=== PATIENT | male | born 1995 ===

== ENCOUNTER 2016-09-30 15:46 | Inpatient (IN) | payer BC, OTHER ==
[2016-09-30] MEDS ORDERED: Iohexol 240 (50 ml) PO STA (16:17)
--- NOTE | 2016-09-30 16:26 | ED PDOC ---
HPI: Abdomen Time Seen by Provider: 09/30/16 15:59 Chief Complaint (Nursing): Abdominal Pain Additional Complaint(s): Patient is a 21 y/o M with hx of Crohns, presenting with abdominal pain. Patient reports that he has had 2 week history of worsening abdominal pain, described as "whole stomach" with vomiting. He reports hard stool, with last BM last night. Denies dysuria. Denies fever. Reports being referred to ED by Dr. Slaughter for abnormal CT CT abd/pelvis from 09/23 shows "segment of markedly thickened terminal ileum with luminal narrowing and adjacent RLQ lymph nodes compatible with Crohns. There is however, marked thickening and abnormal enhancement of the appendix, it is uncertain whether this represents primary appendicitis or a reactive appendicitis. No discrete abscess is observed." Past Medical History Vital Signs: Last Vital Signs Temp 96.8 F L 09/30/16 15:52 Pulse 79 09/30/16 15:52 Resp 16 09/30/16 15:52 BP 114/68 09/30/16 15:52 Pulse Ox 99 09/30/16 17:52 - Family History Family History: States: Unknown Family Hx - Immunization History Hx Tetanus Toxoid Vaccination: No Hx Influenza Vaccination: No Hx Pneumococcal Vaccination: No - Home Medications Home Medications: Ambulatory Orders Medication Instructions Recorded No Known Home Med 09/30/16 - Allergies Allergies/Adverse Reactions: Allergies Allergy/AdvReac Type Severity Reaction Status Date / Time No Known Allergies Allergy Verified 05/19/15 12:20 Review of Systems Constitutional: Positive for: Malaise. Negative for: Fever Cardiovascular: Negative for: Chest Pain, Palpitations, Paroxysmal Noc. Dyspnea Respiratory: Negative for: Cough, Shortness of Breath, SOB with Exertion Gastrointestinal: Positive for: Nausea, Vomiting, Abdominal Pain. Negative for : Diarrhea, Constipation Genitourinary Male: Negative for: Dysuria, Hematuria, Penile Discharge, Scrotal Pain Neurological: Negative for: Weakness, Headache Psych: Negative for: Anxiety Physical Exam - Physical Exam Appears: Positive for: Uncomfortable Head Exam: Positive for: ATRAUMATIC, NORMAL INSPECTION, NORMOCEPHALIC Neck: Positive for: Normal, Painless ROM, Supple Cardiovascular/Chest: Positive for: Regular Rate, Rhythm Respiratory: Positive for: Normal Breath Sounds. Negative for: Rales, Rhonchi, Stridor, Wheezing Gastrointestinal/Abdominal: Positive for: Soft, Tenderness (generalized, but worse in RLQ). Negative for: Distended Back: Negative for: L CVA Tenderness, R CVA Tenderness Extremity: Positive for: Normal ROM. 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 Patient has had CT scan 7 days ago and due to age and risks of radiation, I would prefer not to give another dose of radiation, but considering presentation and prior CT results, will need to get additional CT to evaluate progression. Spoke to Dr. Slaughter, , who sent patient and he agrees with additional CT and labs. 5:51PM WBC is elevated to 16 with bandemia and shift. Will order blood cultures and start cipro/flagyl x [address] at 7pm due to concern for crohns vs appendicitis. Will sign out to Dr. Dodge to follow-up CT and speak to Dr. Slaughter about final dispo Disposition - Clinical Impression Clinical Impression: Abdominal pain - Disposition Disposition Time: 19:00 Condition: FAIR
[2016-09-30] MEDS ORDERED: Sodium Chloride 0.9% 1,000 ML IV ONE (16:30)
[2016-09-30] MEDS ORDERED: Iohexol 240 (50 ml) ONE (16:37)
[2016-09-30 16:43] LABS: BASO % 0.2 % (0.0-2.0); EOS % 0.2 % (0.0-4.0); HEMATOCRIT 42.7 % (35.0-51.0); MEAN CELL VOLUME 74.8 fl (80.0-94.0); MEAN CORPUSCULAR HEMOGLOBIN 24.2 pg (27.0-31.0); MEAN CORPUSCULAR HGB CONC 32.3 g/dL (33.0-37.0); MEAN PLATELET VOLUME 6.4 fl (7.2-11.7); MONO # 1.5 K/uL (0.0-0.8); MONO % 8.9 % (0.0-10.0); NEUT # 13.9 K/uL (1.8-7.0); NEUT % 84.7 % (50.0-75.0); PLATELET COUNT 437 K/uL (130-400); RED CELL DISTRIBUTION WIDTH 15.4 % (11.5-14.5); WHITE BLOOD COUNT 16.4 K/uL (4.8-10.8)
[2016-09-30 16:56] LABS: ALKALINE PHOSPHATASE 101 U/L (38-126); ALT/SGPT 31 U/L (21-72); AST/SGOT 24 U/L (17-59); BILIRUBIN,TOTAL 0.4 mg/dl (0.2-1.3); BLOOD UREA NITROGEN 8 mg/dl (9-20); CALCIUM 9.2 mg/dL (8.4-10.2); CARBON DIOXIDE 28 mmol/L (22-30); CHLORIDE 97 mmol/L (98-107); GFR AFRICAN-AMERICAN > 60; GLUCOSE,RANDOM 93 mg/dL (75-110); LIPASE 70 U/L (23-300); MAGNESIUM 1.9 MG/DL (1.6-2.3); PHOSPHOROUS 3.8 mg/dl (2.5-4.5); POTASSIUM 4.3 MMOL/L (3.6-5.0); SODIUM 135 mmol/l (132-148); TOTAL PROTEIN 7.5 G/DL (6.3-8.2)
[2016-09-30 17:30] LABS: NEUTROPHIL 79 % (42-75); TOTAL CELLS COUNTED 100
[2016-09-30] MEDS ORDERED: metroNIDAZOLE 500mg/100ml NS 100 ML IVPB STA (17:45)
[2016-09-30] MEDS ORDERED: Ciprofloxacin 400mg/200ml D5W 400 MG/200 ML BAG IVPB STA (17:45)
[2016-09-30] MEDS ORDERED: Sodium Chloride 0.9% 1,000 ML IV SCH (18:00)
[2016-09-30] MEDS ORDERED: Ciprofloxacin 400mg/200ml D5W 400 MG/200 ML BAG IVPB ONE (18:01)
[2016-09-30] MEDS ORDERED: Sodium Chloride 0.9% 50 ML IV ONE (18:34)
[2016-09-30] MEDS ORDERED: Iohexol 300 100 ML IJ ONE (18:34)
[2016-09-30 18:45] LABS: RBC URINE 2 /hpf (0-3); URINE BACTERIA FEW (<OCC); URINE BILIRUBIN NEGATIVE (NEGATIVE); URINE BLOOD NEGATIVE (NEGATIVE); URINE COLOR YELLOW (YELLOW); URINE GLUCOSE (UA) NEG (Normal); URINE KETONE 20 mg/dL (NEGATIVE); URINE LEUKOCYTE ESTERASE NEG Leu/uL (Negative); URINE PROTEIN NEGATIVE (NEGATIVE); URINE UROBILINOGEN 0.2-1.0 mg/dL (0.2-1.0); WBC URINE < 1 /hpf (0-5)
[2016-09-30] MEDS ORDERED: metroNIDAZOLE 500mg/100ml NS 100 ML IVPB ONE (18:49)
[2016-09-30 19:46] LABS: ABG ALLEN TEST YES; ARTERIAL BLOOD GAS HCO3 25.3 mmol/L (21-28); ARTERIAL BLOOD GAS PO2 97 mm/Hg (80-100)
--- NOTE | 2016-09-30 20:25 | ED PDOC ---
- Laboratory Results Result Diagrams: 09/30/16 16:17 09/30/16 16:26 - ECG O2 Sat by Pulse Oximetry: 99 Pulse Ox Interpretation: Normal Disposition - Clinical Impression Clinical Impression: Acute Crohn's disease, Ileus, Chronic appendicitis - POA Present On Arrival: None - Disposition Disposition: Admitted as In-Patient Disposition Time: 20:25 Condition: STABLE Progress Note - Review of Symptoms Events since last encounter: 8PM IMPRESSION: 1. Right L1 transverse process fracture, age-indeterminate. Clinical correlation recommended. 2. Moderate abdominopelvic ascites. 3. Tubular structure originating from the cecum is suspicious for appendix and measures up to 1 cm suggestive of appendicitis versus less likely ileum. No definite evidence of perforation or adjacent abscess. Diffuse small bowel dilatation with air-fluid levels is noted with stool observed within the colon. Findings are suggestive of ileus versus partial small bowel obstruction secondary to appendicitis. Clinical correlation recommended. Spoke with DR. Slaughter who agrees with broad spectrum Abx and also steroids. Spoke with Dr. Durand who states that likely patient not having appendicitis and to continue medical treatment, will consult on patient. Spoke with Dr. Green who agrees with admission. Family informed of ongoing workup.
[2016-09-30] MEDS: Sodium Chloride 0.9% 1,000 ML IV SCH (20:47)
[2016-09-30 22:18] VITALS: RESP 18
[2016-10-01] MEDS: metroNIDAZOLE 500mg/100ml NS 100 ML IVPB SCH ×2 (01:41→09:10)
[2016-10-01] MEDS: Sodium Chloride 0.9% 1,000 ML IV SCH ×3 (03:13→16:31)
[2016-10-01 07:31] LABS: HEMATOCRIT 38.8 % (35.0-51.0); MEAN CELL VOLUME 74.3 fl (80.0-94.0); MEAN CORPUSCULAR HEMOGLOBIN 24.1 pg (27.0-31.0); MEAN CORPUSCULAR HGB CONC 32.5 g/dL (33.0-37.0); RED CELL DISTRIBUTION WIDTH 15.3 % (11.5-14.5); WHITE BLOOD COUNT 6.9 K/uL (4.8-10.8)
[2016-10-01 07:52] LABS: ALB/GLOB RATIO 0.9 (1.0-2.1); ALKALINE PHOSPHATASE 81 U/L (38-126); ALT/SGPT 25 U/L (21-72); AST/SGOT 14 U/L (17-59); BILIRUBIN,TOTAL 0.2 mg/dl (0.2-1.3); BLOOD UREA NITROGEN 11 mg/dl (9-20); CALCIUM 8.5 mg/dL (8.4-10.2); CARBON DIOXIDE 26 mmol/L (22-30); CHLORIDE 101 mmol/L (98-107); GFR AFRICAN-AMERICAN > 60; GLUCOSE,RANDOM 145 mg/dL (75-110); POTASSIUM 4.4 MMOL/L (3.6-5.0); SODIUM 136 mmol/l (132-148); TOTAL PROTEIN 5.9 G/DL (6.3-8.2)
--- NOTE | 2016-10-01 08:52 | CP.PCM.CON ---
History of Present Illness - History of Present Illness History of Present Illness: General Surgery - Dr. Durand 21M w/ hx of Crohn's disease, presents with generalized abdominal pain x3 weeks. Pt states that he began having pain 3 weeks ago. He describes it as a bloated feeling located throughout the entire abdomen, intermittent but has become progressively worse, with associated episodes of intermittent vomiting, gastric contents. Pt also admits to constipation with small hard stools and some blood in the stool. He denies any F/C, SOB/Cp, Dysuria, Hematuria. Pt states that he was diagnosed with Crohn's dz on colonoscopy ~1year ago and took a course of medication at the time but states he does not take any medications currently. He was scheduled to have EGD done next week. PMH: Crohn's PSH: colonoscopy NKDA WBC on admission elevated to 16.4 but this morning is normal at 6. CT abdomen pelvis shows dilated loops of small bowel, stool throughout colon, possible partial SBO v. Ileus, also appendix mildly dilated to 6-7mm and fluid filled. Surgery is consulted for Crohn's v. Appendicitis. Review of Systems - Review of Systems All systems: reviewed and no additional remarkable complaints except (as per HPI ) Past Patient History - Infectious Disease Hx of Infectious Diseases: None - Past Medical History & Family History Past Medical History?: No - Past Social History Smoking Status: Never Smoked - HEMATOLOGICAL/ONCOLOGICAL Hx AIDS: No Hx Human Immunodeficiency Virus (HIV): No Hx Leukemia: No - MUSCULOSKELETAL/RHEUMATOLOGICAL Hx Falls: No - PSYCHIATRIC Hx Substance Use: No - SURGICAL HISTORY Hx Surgeries: No - ANESTHESIA Hx Anesthesia: No Meds Allergies/Adverse Reactions: Allergies Allergy/AdvReac Type Severity Reaction Status Date / Time No Known Allergies Allergy Verified 09/30/16 18:14 - Medications Medications: Current Medications Sodium Chloride (Sodium Chloride 0.9%) 1,000 mls @ 1,000 mls/hr IV .Q1H [facility] Stop: 10/01/16 17:46 Last Admin: 09/30/16 18:08 Dose: 1,000 mls/hr Sodium Chloride (Sodium Chloride 0.9%) 1,000 mls @ 150 mls/hr IV .Q6H40M [facility] Stop: 10/01/16 20:18 Last Admin: 10/01/16 03:13 Dose: Not Given Ciprofloxacin (Cipro 400mg/200ml Dsw) 400 mg in 200 mls @ 200 mls/hr IVPB Q12 [facility] L Metronidazole (Flagyl 500mg/100ml Ns) 100 mls @ 100 mls/hr IVPB Q8 [facility] Last Admin: 10/01/16 01:41 Dose: 100 mls/hr Dextrose/Lactated Ringer's (Dextrose 5%/Lactated Ringer's) 1,000 mls @ 100 mls/ hr IV .Q10H [facility] Stop: 10/01/16 23:28 Last Admin: 10/01/16 00:00 Dose: 100 mls/hr Morphine Sulfate (Morphine) 4 mg IVP Q4 PRN PRN Reason: Pain, severe (8-10) Ondansetron HCl (Zofran Inj) 4 mg IVP Q4 PRN PRN Reason: Nausea/Vomiting Pantoprazole Sodium (Protonix Ec Tab) 40 mg PO DAILY [facility] Physical Exam - Constitutional Appears: No Acute Distress - Head Exam Head Exam: ATRAUMATIC, NORMAL INSPECTION, NORMOCEPHALIC - Eye Exam Eye Exam: Normal appearance - ENT Exam ENT Exam: Mucous Membranes Moist - Respiratory Exam Respiratory Exam: NORMAL BREATHING PATTERN. absent: Respiratory Distress - Cardiovascular Exam Cardiovascular Exam: REGULAR RHYTHM - GI/Abdominal Exam GI & Abdominal Exam: Distended (mild), Firm, Guarding, Tenderness (mild ttp diffusely). absent: Rebound, Rigid - Neurological Exam Neurological exam: Oriented x3 - Psychiatric Exam Psychiatric exam: Normal Affect, Normal Mood - Skin Skin Exam: Dry, Intact Results - Vital Signs Recent Vital Signs: Last Vital Signs Temp 97.6 F 10/01/16 08:25 Pulse 51 L 10/01/16 08:25 Resp 18 10/01/16 08:25 BP 96/59 L 10/01/16 08:25 Pulse Ox 100 10/01/16 08:25 - Labs Result Diagrams: 10/01/16 06:15 10/01/16 06:15 Labs: Laboratory Results - last 24 hr 10/01/16 10/01/16 06:15 06:15 WBC 6.9 D RBC 5.22 Hgb 12.6 Hct 38.8 MCV 74.3 L MCH 24.1 L MCHC 32.5 L RDW 15.3 H Plt Count 393 Sodium 136 Potassium 4.4 Chloride 101 Carbon Dioxide 26 Anion Gap 13 BUN 11 Creatinine 0.8 Est GFR ( Amer) > 60 Est GFR (Non-Af Amer) > 60 Random Glucose 145 H Calcium 8.5 Total Bilirubin 0.2 AST 14 L D ALT 25 Alkaline Phosphatase 81 Total Protein 5.9 L Albumin 2.8 L D Globulin 3.1 Albumin/Globulin Ratio 0.9 L - Imaging and Cardiology CT scan - abdomen Status: Image reviewed by me, Report reviewed by me Assessment & Plan - Assessment and Plan (Free Text) Assessment: 21 M w/ hx of Crohn's, with abdominal pain x3 wks -CT reviewed, findings suggestive of Crohn's flare w/ partial SBO and likely reactive appendicitis -F/U GI -No plans for surgical intervention at this time -Maintain NPO until seen by GI -Pain control -We will jose with you Will DW Dr. Ladarius Burnett PGY2
[2016-10-01] MEDS ORDERED: Ciprofloxacin 400mg/200ml D5W 400 MG/200 ML BAG IVPB SCH (09:00)
[2016-10-01] MEDS ORDERED: Pantoprazole 40 mg EC Tab PO SCH (09:00)
--- NOTE | 2016-10-01 09:25 | CP.PCM.CON ---
History of Present Illness - History of Present Illness History of Present Illness: yo male diagnosed last year with Crohns c/o abdominal pain for 2 weeks. Has not been having regular physician visits and has been off all meds. Had CT one week ago suggestive of possible appendicitis. Saw me yesterday in the office with increasing pain and nausea and sent to ER where there was abnormal enhancement of appendix on CT. Surgery was also consulted. Review of Systems - Constitutional Constitutional: As Per HPI - EENT Ears: absent: Decreased Hearing Nose/Mouth/Throat: absent: Epistaxis - Cardiovascular Cardiovascular: absent: Chest Pain - Respiratory Respiratory: absent: Dyspnea - Gastrointestinal Gastrointestinal: As Per HPI Past Patient History - Infectious Disease Hx of Infectious Diseases: None - Past Medical History & Family History Past Medical History?: No - Past Social History Smoking Status: Never Smoked - HEMATOLOGICAL/ONCOLOGICAL Hx AIDS: No Hx Human Immunodeficiency Virus (HIV): No Hx Leukemia: No - MUSCULOSKELETAL/RHEUMATOLOGICAL Hx Falls: No - PSYCHIATRIC Hx Substance Use: No - SURGICAL HISTORY Hx Surgeries: No - ANESTHESIA Hx Anesthesia: No Meds Allergies/Adverse Reactions: Allergies Allergy/AdvReac Type Severity Reaction Status Date / Time No Known Allergies Allergy Verified 09/30/16 18:14 - Medications Medications: Current Medications Sodium Chloride (Sodium Chloride 0.9%) 1,000 mls @ 1,000 mls/hr IV .Q1H [facility] Stop: 10/01/16 17:46 Last Admin: 09/30/16 18:08 Dose: 1,000 mls/hr Sodium Chloride (Sodium Chloride 0.9%) 1,000 mls @ 150 mls/hr IV .Q6H40M [facility] Stop: 10/01/16 20:18 Last Admin: 10/01/16 03:13 Dose: Not Given Ciprofloxacin (Cipro 400mg/200ml Dsw) 400 mg in 200 mls @ 200 mls/hr IVPB Q12 [facility] Last Admin: 10/01/16 09:11 Dose: 200 mls/hr Metronidazole (Flagyl 500mg/100ml Ns) 100 mls @ 100 mls/hr IVPB Q8 [facility] Last Admin: 10/01/16 09:10 Dose: 100 mls/hr Dextrose/Lactated Ringer's (Dextrose 5%/Lactated Ringer's) 1,000 mls @ 100 mls/ hr IV .Q10H [facility] Stop: 10/01/16 23:28 Last Admin: 10/01/16 00:00 Dose: 100 mls/hr Methylprednisolone 20 mg/ (Sodium Chloride) 50 mls @ 100 mls/hr IV Q8 [facility] Morphine Sulfate (Morphine) 4 mg IVP Q4 PRN PRN Reason: Pain, severe (8-10) Ondansetron HCl (Zofran Inj) 4 mg IVP Q4 PRN PRN Reason: Nausea/Vomiting Physical Exam - Head Exam Head Exam: NORMAL INSPECTION - Eye Exam Eye Exam: Normal appearance - ENT Exam ENT Exam: Mucous Membranes Moist - Neck Exam Neck exam: Positive for: Normal Inspection - Respiratory Exam Respiratory Exam: Clear to Auscultation Bilateral - GI/Abdominal Exam GI & Abdominal Exam: Normal Bowel Sounds, Soft. absent: Tenderness Results - Vital Signs Recent Vital Signs: Last Vital Signs Temp 97.6 F 10/01/16 08:25 Pulse 51 L 10/01/16 08:25 Resp 18 10/01/16 08:25 BP 96/59 L 10/01/16 08:25 Pulse Ox 100 10/01/16 08:25 - Labs Result Diagrams: 10/01/16 06:15 10/01/16 06:15 Labs: Laboratory Results - last 24 hr 10/01/16 10/01/16 06:15 06:15 WBC 6.9 D RBC 5.22 Hgb 12.6 Hct 38.8 MCV 74.3 L MCH 24.1 L MCHC 32.5 L RDW 15.3 H Plt Count 393 ESR 29 H Sodium 136 Potassium 4.4 Chloride 101 Carbon Dioxide 26 Anion Gap 13 BUN 11 Creatinine 0.8 Est GFR ( Amer) > 60 Est GFR (Non-Af Amer) > 60 Random Glucose 145 H Calcium 8.5 Total Bilirubin 0.2 AST 14 L D ALT 25 Alkaline Phosphatase 81 Total Protein 5.9 L Albumin 2.8 L D Globulin 3.1 Albumin/Globulin Ratio 0.9 L - Imaging and Cardiology CT scan - abdomen Status: Report reviewed by me Assessment & Plan (1) Acute Crohn's disease Assessment and Plan: Clinically much better. Most likely Crohns flare. Will advance to clears. Solumedrol 20 mg TID started . Possible discharge later today. Status: Acute
[2016-10-01] MEDS ORDERED: methylPREDNISolone 20 MG in Sodium Chloride 0.9% 50 ML IV SCH (09:30)
[2016-10-01] MEDS: Dextrose 5%/Lactated Ringer's 1,000 ML IV SCH ×2 (09:56)
--- NOTE | 2016-10-01 10:47 | CT ---
PROCEDURE: CT Abdomen and Pelvis with contrast HISTORY: hx of crohns, worsening pain, RLQ COMPARISON: Comparison is made to the previous study report dated 09/23/2016 done on [facility] TECHNIQUE: Contrast dose: 90 mL of Omnipaque 300. Axial and reformatted coronal and sagittal CT images of the abdomen and pelvis were obtained after IV and oral contrast administration. Radiation dose: Total exam DLP = 303.67 mGy-cm. This CT exam was performed using one or more of the following dose reduction techniques: Automated exposure control, adjustment of the mA and/or kV according to patient size, and/or use of iterative reconstruction technique. FINDINGS: LOWER THORAX: Unremarkable. LIVER: Unremarkable. No gross lesion or ductal dilatation. GALLBLADDER AND BILE DUCTS: Unremarkable. PANCREAS: Unremarkable. No gross lesion or ductal dilatation. SPLEEN: Unremarkable. ADRENALS: Unremarkable. No mass. KIDNEYS AND URETERS: Unremarkable. No hydronephrosis. No solid mass. VASCULATURE: Unremarkable. No aortic aneurysm. BOWEL: There are [id number] dilated small bowel lobe demonstrate mild diffuse wall thickening. There is market wall thickening of the terminal ileum. The segmental wall thickening of the terminal ileum measures approximately 3.5 - 4 centimeter in length. The proximal small bowel loops in the left upper abdomen are mildly dilated. There is mild constipation on the right colon. APPENDIX: The appendix is mildly enlarged measures up to 8.5-9 millimeter. PERITONEUM: There is small amount of free fluid in the lower abdomen and pelvis. LYMPH NODES: Mildly enlarged lymph nodes at the right lower abdomen are seen. BLADDER: Unremarkable. REPRODUCTIVE: Unremarkable. BONES: Non fusion of the right transverse process of T12 is noted. The possibility of old fracture is less likely. No CT evidence of acute fracture. OTHER FINDINGS: None. IMPRESSION: Moderately dilated mid and distal small bowel loops up to short segment of severe wall thickening at the terminal ileum. Findings may represent Crohn's disease and partial obstruction at the level of the terminal ileum due to severe wall thickening. Adjacent inflammatory changes at the right lower abdomen around the thick terminal ileum including mildly dilated appendix which may be due to narrowing of the proximal appendix due to reaction from the adjacent ileitis. The possibility of acute appendicitis felt to be less likely. The dilated mid and distal small bowel loops demonstrate mildly enhancing thick wall Small amount of free fluid in the lower abdomen and pelvis. Mildly enlarged mesenteric lymph nodes at the right mid and lower abdomen. Preliminary report was submitted by [facility]. There are some discrepancies in the preliminary report. The above is the final report for this study.
[2016-10-01 11:36] VITALS: BMI 21.6
--- NOTE | 2016-10-01 15:42 | CP.PCM.HP ---
History of Present Illness - History of Present Illness History of Present Illness: 21yo M with signficant PMHx Chron's admitted for abd pain questionable for appendicitis. GI is Dr. Slaughter who sent pt to ED for eval. Tolerating PO, abd pain improved. PMHx: as above SHx: NC Allergies: NKDA Social: denies x3 d/w attending Present on Admission - Present on Admission Any Indicators Present on Admission: No Review of Systems - Review of Systems All systems: reviewed and no additional remarkable complaints except (abd pain) Past Patient History - Infectious Disease Hx of Infectious Diseases: None - Past Medical History & Family History Past Medical History?: No - Past Social History Smoking Status: Never Smoked - HEMATOLOGICAL/ONCOLOGICAL Hx AIDS: No Hx Human Immunodeficiency Virus (HIV): No Hx Leukemia: No - MUSCULOSKELETAL/RHEUMATOLOGICAL Hx Falls: No - PSYCHIATRIC Hx Substance Use: No - SURGICAL HISTORY Hx Surgeries: No - ANESTHESIA Hx Anesthesia: No Meds Allergies/Adverse Reactions: Allergies Allergy/AdvReac Type Severity Reaction Status Date / Time No Known Allergies Allergy Verified 09/30/16 18:14 Physical Exam - Constitutional Appears: Non-toxic, No Acute Distress - Head Exam Head Exam: ATRAUMATIC, NORMAL INSPECTION - Eye Exam Eye Exam: Normal appearance - ENT Exam ENT Exam: Mucous Membranes Moist - Neck Exam Neck exam: Positive for: Normal Inspection - Respiratory Exam Respiratory Exam: Clear to Auscultation Bilateral - Cardiovascular Exam Cardiovascular Exam: REGULAR RHYTHM - GI/Abdominal Exam GI & Abdominal Exam: Normal Bowel Sounds, Soft, Tenderness (RLQ, minimal). absent: Distended, Guarding, Rigid - Extremities Exam Extremities exam: Positive for: normal inspection - Back Exam Back exam: NORMAL INSPECTION - Neurological Exam Neurological exam: Alert, Oriented x3 - Skin Skin Exam: Dry, Warm Results - Vital Signs Recent Vital Signs: Last Vital Signs Temp 97.6 F 10/01/16 08:25 Pulse 51 L 10/01/16 08:25 Resp 18 10/01/16 08:25 BP 96/59 L 10/01/16 08:25 Pulse Ox 100 10/01/16 08:25 - Labs Result Diagrams: 10/01/16 06:15 10/01/16 06:15 Labs: Laboratory Results - last 24 hr 10/01/16 10/01/16 06:15 06:15 WBC 6.9 D RBC 5.22 Hgb 12.6 Hct 38.8 MCV 74.3 L MCH 24.1 L MCHC 32.5 L RDW 15.3 H Plt Count 393 ESR 29 H Sodium 136 Potassium 4.4 Chloride 101 Carbon Dioxide 26 Anion Gap 13 BUN 11 Creatinine 0.8 Est GFR ( Amer) > 60 Est GFR (Non-Af Amer) > 60 Random Glucose 145 H Calcium 8.5 Total Bilirubin 0.2 AST 14 L D ALT 25 Alkaline Phosphatase 81 Total Protein 5.9 L Albumin 2.8 L D Globulin 3.1 Albumin/Globulin Ratio 0.9 L Assessment & Plan - Assessment and Plan (Free Text) Assessment: 21yo M with signficant PMHx Chron's admitted for abd pain questionable for appendicitis. -CT abd/pelvis: Chron's v appendicitis (unlikely) -c/s GI -c/s Surgery -advance diet as tolerated -MIVF -pain control -zofran Decision To Admit - Pt Status Changed To: Hospital Disposition Of: Inpatient - Admit Certification Admit to Inpatient:: After my assessment, the patient will require hospitalization for at least two midnights. This is because of the severity of symptoms shown, intensity of services needed, and/or the medical risk in this patient being treated as an outpatient. - . Bed Request Type: Med/Surg Admitting Physician: Christopher Green
--- NOTE | 2016-10-01 15:46 | CP.PCM.DIS ---
Provider - Provider Date of Admission: 09/30/16 20:20 Attending physician: Christopher Green MD Time Spent in preparation of Discharge (in minutes): 20 Diagnosis - Discharge Diagnosis (1) Acute Crohn's disease Status: Acute Hospital Course - Lab Results Lab Results: Most Recent Lab Values WBC 6.9 K/uL (4.8-10.8) D 10/01/16 06:15 RBC 5.22 Mil/uL (4.40-5.90) 10/01/16 06:15 Hgb 12.6 g/dL (12.0-18.0) 10/01/16 06:15 Hct 38.8 % (35.0-51.0) 10/01/16 06:15 MCV 74.3 fl (80.0-94.0) L 10/01/16 06:15 MCH 24.1 pg (27.0-31.0) L 10/01/16 06:15 MCHC 32.5 g/dL (33.0-37.0) L 10/01/16 06:15 RDW 15.3 % (11.5-14.5) H 10/01/16 06:15 Plt Count 393 K/uL (130-400) 10/01/16 06:15 MPV 6.4 fl (7.2-11.7) L 09/30/16 16:17 Neut % (Auto) 84.7 % (50.0-75.0) H 09/30/16 16:17 Lymph % (Auto) 6.0 % (20.0-40.0) L 09/30/16 16:17 [place] % (Auto) 8.9 % (0.0-10.0) 09/30/16 16:17 Eos % (Auto) 0.2 % (0.0-4.0) 09/30/16 16:17 Baso % (Auto) 0.2 % (0.0-2.0) 09/30/16 16:17 Neut # 13.9 K/uL (1.8-7.0) H 09/30/16 16:17 Lymph # 1.0 K/uL (1.0-4.3) 09/30/16 16:17 [place] # 1.5 K/uL (0.0-0.8) H 09/30/16 16:17 Eos # 0.0 K/uL (0.0-0.7) 09/30/16 16:17 Baso # 0.0 K/uL (0.0-0.2) 09/30/16 16:17 Neutrophils % (Manual) 79 % (42-75) H 09/30/16 16:17 Band Neutrophils % 4 % (0-2) H 09/30/16 16:17 Lymphocytes % (Manual) 8 % (20-50) L 09/30/16 16:17 Monocytes % (Manual) 9 % (0-10) 09/30/16 16:17 Platelet Estimate Normal (NORMAL) 09/30/16 16:17 Hypochromasia (manual) Slight 09/30/16 16:17 Microcytosis (manual) Slight 09/30/16 16:17 ESR 29 mm/hr (0-15) H 10/01/16 06:15 pCO2 41 mm/Hg (35-45) 09/30/16 19:40 pO2 97 mm/Hg (80-100) 09/30/16 19:40 HCO3 25.3 mmol/L (21-28) 09/30/16 19:40 ABG pH 7.40 (7.35-7.45) 09/30/16 19:40 ABG Total CO2 26.7 mmol/L (22-28) 09/30/16 19:40 ABG O2 Saturation 96.8 % (95-98) 09/30/16 19:40 ABG Base Excess 0.5 mmol/L (-2.0-3.0) 09/30/16 19:40 Juan Test Yes 09/30/16 19:40 ABG Potassium 4.1 mmol/L (3.6-5.2) 09/30/16 19:40 A-a O2 Difference 1.0 mm/Hg 09/30/16 19:40 Sodium 130.0 mmol/L (132-148) L 09/30/16 19:40 Chloride 104.0 mmol/L (98-107) 09/30/16 19:40 Glucose 114 mg/dL (75-110) H 09/30/16 19:40 Lactate 0.6 mmol/L (0.7-2.1) L 09/30/16 19:40 FiO2 21.0 % 09/30/16 19:40 Sodium 136 mmol/l (132-148) 10/01/16 06:15 Potassium 4.4 MMOL/L (3.6-5.0) 10/01/16 06:15 Chloride 101 mmol/L (98-107) 10/01/16 06:15 Carbon Dioxide 26 mmol/L (22-30) 10/01/16 06:15 Anion Gap 13 (10-20) 10/01/16 06:15 BUN 11 mg/dl (9-20) 10/01/16 06:15 Creatinine 0.8 mg/dL (0.8-1.5) 10/01/16 06:15 Est GFR ( Amer) > 60 10/01/16 06:15 Est GFR (Non-Af Amer) > 60 10/01/16 06:15 Random Glucose 145 mg/dL (75-110) H 10/01/16 06:15 Calcium 8.5 mg/dL (8.4-10.2) 10/01/16 06:15 Phosphorus 3.8 mg/dl (2.5-4.5) 09/30/16 16:26 Magnesium 1.9 MG/DL (1.6-2.3) 09/30/16 16:26 Total Bilirubin 0.2 mg/dl (0.2-1.3) 10/01/16 06:15 AST 14 U/L (17-59) L D 10/01/16 06:15 ALT 25 U/L (21-72) 10/01/16 06:15 Alkaline Phosphatase 81 U/L (38-126) 10/01/16 06:15 Total Protein 5.9 G/DL (6.3-8.2) L 10/01/16 06:15 Albumin 2.8 g/dL (3.5-5.0) L D 10/01/16 06:15 Globulin 3.1 gm/dL (2.2-3.9) 10/01/16 06:15 Albumin/Globulin Ratio 0.9 (1.0-2.1) L 10/01/16 06:15 Lipase 70 U/L (23-300) 09/30/16 16:26 Arterial Blood Potassium 4.1 mmol/L (3.6-5.2) 09/30/16 19:40 Urine Color Yellow (YELLOW) 09/30/16 18:30 Urine Clarity Clear (Clear) 09/30/16 18:30 Urine pH 6.0 (5.0-8.0) 09/30/16 18:30 Ur Specific Ranger 1.008 (1.003-1.030) 09/30/16 18:30 Urine Protein Negative mg/dL (NEGATIVE) 09/30/16 18:30 Urine Glucose (UA) Neg mg/dL (Normal) 09/30/16 18:30 Urine Ketones 20 mg/dL (NEGATIVE) 09/30/16 18:30 Urine Blood Negative (NEGATIVE) 09/30/16 18:30 Urine Nitrate Negative (NEGATIVE) 09/30/16 18:30 Urine Bilirubin Negative (NEGATIVE) 09/30/16 18:30 Urine Urobilinogen 0.2-1.0 mg/dL (0.2-1.0) 09/30/16 18:30 Ur Leukocyte Esterase Neg Deng/uL (Negative) 09/30/16 18:30 Urine RBC (Auto) 2 /hpf (0-3) 09/30/16 18:30 Urine Microscopic WBC < 1 /hpf (0-5) 09/30/16 18:30 Ur Squamous Epith Cells 1 /hpf (0-5) 09/30/16 18:30 Urine Bacteria Few (<OCC) H 09/30/16 18:30 - Hospital Course Hospital Course: 21yo M with signficant PMHx Chron's admitted for abd pain questionable for appendicitis. CT abd/pelvis showed Chron's disease, appendicits unlikely. GI Dr. Slaughter c/s and recommend advancing diet as tolerated and d/c home if tolerating PO. Surgery Dr. Durand c/s who agreed with medical management and no surgical intervention. Pt tolerated PO at time of d/c. Will FU with GI. Discharge Exam - Head Exam Head Exam: ATRAUMATIC, NORMAL INSPECTION Discharge Plan - Follow Up Plan Condition: STABLE Disposition: HOME/ ROUTINE Referrals: Sy Slaughter MD [Staff Provider] -
[2016-10-01 16:20] VITALS: BP 97/55; PULSE 56; TEMP 98.2; O2SAT 99
== END 2016-10-01 17:32 | disposition home or self-care (01) | DRG 387 ==
LOC: H.ER 15:46 → H.ERHOLD 20:20 → H.MEDSURG1 22:06
PROVIDERS: ADMIT Family Medicine; ATTEND Family Medicine
DX: K50.90 Crohn's disease, unspecified, without complications (principal)

== ENCOUNTER 2016-10-03 19:56 | Inpatient (IN) | payer OTHER ==
[2016-10-03 19:56] VITALS: BMI 21.6
[2016-10-03] MEDS ORDERED: Sodium Chloride 0.9% 1,000 ML IV STA (20:36)
--- NOTE | 2016-10-03 20:39 | ED PDOC ---
HPI: Abdomen Time Seen by Provider: 10/03/16 20:25 Chief Complaint (Nursing): Abdominal Pain Chief Complaint (Provider): abdominal pain History Per: Patient, Family History/Exam Limitations: no limitations Onset/Duration Of Symptoms: Days (3 weeks) Current Symptoms Are (Timing): Still Present Location Of Pain/Discomfort: Diffuse Quality Of Discomfort: Cramping, "Pain" Additional History Per: Patient Additional Complaint(s): 21 y/o male history of Crohn's disease presents with diffuse abdominal pain x 3 weeks. Patient discharged from hospital 2 days ago for same with rx Medrol dose nasrin and was instructed to return for returning/worsening pain. Patient describes pain as same type of pain that he had been having since before admission, noted some improvement on discharge. Denies fever, chest pain, nausea/vomiting, changes in bowel movements (last BM today), urinary symptoms, recent travel, sick contacts. Past Medical History Reviewed: Historical Data, Nursing Documentation, Vital Signs Vital Signs: Last Vital Signs Temp 98.9 F 10/04/16 02:59 Pulse 79 10/04/16 02:59 Resp 16 10/04/16 04:26 BP 129/68 10/04/16 02:59 Pulse Ox 100 10/04/16 03:33 - Medical History PMH: Crohn's Disease Denies: HIV - Surgical History Surgical History: No Surg Hx - Family History Family History: States: Unknown Family Hx - Immunization History Hx Tetanus Toxoid Vaccination: No Hx Influenza Vaccination: No Hx Pneumococcal Vaccination: No - Home Medications Home Medications: Ambulatory Orders Medication Instructions Recorded Methylprednisolone [Medrol Dose 4 mg PO ASDIR #21 mg 10/01/16 Pack (21 tabs)] - Allergies Allergies/Adverse Reactions: Allergies Allergy/AdvReac Type Severity Reaction Status Date / Time No Known Allergies Allergy Verified 09/30/16 18:14 Review of Systems ROS Statement: Except As Marked, All Systems Reviewed And Found Negative Gastrointestinal: Positive for: Abdominal Pain Physical Exam - Reviewed Nursing Documentation Reviewed: Yes Vital Signs Reviewed: Yes - Physical Exam Appears: Positive for: Well, Non-toxic, No Acute Distress Head Exam: Positive for: ATRAUMATIC, NORMAL INSPECTION, NORMOCEPHALIC Skin: Positive for: Normal Color Eye Exam: Positive for: Normal appearance ENT: Positive for: Normal ENT Inspection Cardiovascular/Chest: Positive for: Regular Rate, Rhythm Respiratory: Positive for: Normal Breath Sounds Gastrointestinal/Abdominal: Positive for: Bowel Sounds, Soft, Tenderness ( diffuse discomfor to palpation; worse LUQ, RLQ). 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 Patient was educated on how to take medrol dose nasrin. labs, iv fluids, iv toradol, po bentyl ordered Case discussed with ED attending Dr. Silver, patient back to ED with returning abdominal pain, found to have WBC elevation today. During patient's admission, surgery consult concluded patient to have "reactive appendicitis". Patient will require another CT to r/out apppendicitis. Patient educated on findings, and benefits vs risks of repeating CT. Patient demonstrates full understanding, will obtain CT EXAM: CT Abdomen and Pelvis With Intravenous Contrast CLINICAL HISTORY: Pain; Abdominal pain; Epigastric; Additional info: Abd pain Additional information contained in the clinical history provided for the comparison examination: History of Crohn's disease. TECHNIQUE: Axial computed tomography images of the abdomen and pelvis with intravenous contrast. This CT exam was performed using one or more of the following dose reduction techniques : automated exposure control, adjustment of the mA and/or kV according to patient size, and/ or use of iterative reconstruction technique. Oral contrast was administered. Coronal and sagittal reformatted images were created and reviewed. CONTRAST: 95 mL of [id number] administered intravenously. EXAM DATE/TIME: 10/04/2016 COMPARISON: CT Abdomen/Pelvis 09/30/2016 FINDINGS: Lower thorax: No pulmonary airspace consolidation or pleural fluid collection in the imaged portion of the thorax. ABDOMEN: Liver: No acute findings. Gallbladder and bile ducts: No acute findings. No radiopaque gallstones. Pancreas: No acute findings. Spleen: No acute findings. Adrenals: No acute findings. Kidneys and ureters: No acute findings. Stomach and bowel: Redemonstrated marked wall thickening of the terminal ileum and mild wall thickening of several additional ileal loops, similar in appearance the prior study. Redemonstrated multiple moderately dilated mid and distal small bowel loops with a transition point at the markedly thick-walled section of the terminal ileum. The dilated small bowel loops measure up to 5 cm in diameter, similar to the prior study. No pneumatosis intestinalis or mesenteric vascular gas. The appendix is again noted to be dilated, thick-walled, and fluid-filled. The appendiceal wall thickening is most prominent in the proximal to mid appendix, similar in appearance to the prior study. Moderate amount of stool in the colon, increased in amount compared to the prior study. High attenuation material within the mid ascending through mid sigmoid colon is likely residual oral contrast material from the previous examination as there is no oral contrast in the distal most small bowel or the cecum on the current examination. Appendix: See above. PELVIS: Bladder: The bladder is moderately distended but otherwise normal in appearance. Reproductive: No evident acute abnormality of the imaged structures. ABDOMEN and PELVIS: Intraperitoneal space: No free intraperitoneal air. Small amount of pelvic free fluid, similar in volume to the prior study. Bones/joints: No acute findings. Soft tissues: No acute findings. Vasculature: No acute findings. Lymph nodes: Several redemonstrated mildly enlarged mesenteric lymph nodes. IMPRESSION: 1. No significant change from the prior study. 2. Redemonstrated marked wall thickening of the terminal ileum and mild wall thickening of several additional ileal loops is most consistent with persistent Crohn's inflammation. 3. Redemonstrated dilation, wall thickening, and fluid distention of the appendix is similar in appearance to the prior study and most likely secondary to the acute Crohn's inflammation. Concurrent primary acute appendicitis is less likely. 4. Redemonstrated multiple moderately dilated small bowel loops are worrisome for a mid to highgrade bowel obstruction secondary to the Crohn's inflammation but differential diagnosis also includes a reactive ileus. 5. A moderate amount of stool in the colon, increased in amount compared to the prior study, is compatible with constipation. 6. Small amount of pelvic free fluid, similar in volume to the prior study Case discussed with Dr. Slaughter, who agrees with plan for admission. Recommends IV solumedrol 20mg Q8, NPO, IV fluids. Will consult in am. Case discussed with Dr. Menard, medical surgical tech on-call, for am consult Dr. Roberto spoke with Dr. Green for admission. Disposition - Clinical Impression Clinical Impression: Acute Crohn's disease - Patient ED Disposition Is Patient to be Admitted: Yes - Disposition Disposition Time: 02:30 Condition: FAIR
[2016-10-03 20:59] LABS: BASO % 0.2 % (0.0-2.0); EOS # 0.1 K/uL (0.0-0.7); EOS % 0.5 % (0.0-4.0); HEMATOCRIT 39.7 % (35.0-51.0); LYMPH # 1.4 K/uL (1.0-4.3); LYMPH % 11.4 % (20.0-40.0); MEAN CELL VOLUME 74.7 fl (80.0-94.0); MEAN CORPUSCULAR HEMOGLOBIN 24.3 pg (27.0-31.0); MEAN CORPUSCULAR HGB CONC 32.5 g/dL (33.0-37.0); MEAN PLATELET VOLUME 6.8 fl (7.2-11.7); MONO # 1.9 K/uL (0.0-0.8); MONO % 15.3 % (0.0-10.0); NEUT # 8.9 K/uL (1.8-7.0); NEUT % 72.6 % (50.0-75.0); NRBC % 0.1 % (0.0-0.0); PLATELET COUNT 444 K/uL (130-400); RED CELL DISTRIBUTION WIDTH 15.6 % (11.5-14.5); WHITE BLOOD COUNT 12.3 K/uL (4.8-10.8)
[2016-10-03 21:09] LABS: ALKALINE PHOSPHATASE 87 U/L (38-126); ALT/SGPT 27 U/L (21-72); AST/SGOT 25 U/L (17-59); BILIRUBIN,TOTAL 0.2 mg/dl (0.2-1.3); BLOOD UREA NITROGEN 9 mg/dl (9-20); CALCIUM 8.6 mg/dL (8.4-10.2); CARBON DIOXIDE 27 mmol/L (22-30); CHLORIDE 98 mmol/L (98-107); GFR AFRICAN-AMERICAN > 60; GLUCOSE,RANDOM 110 mg/dL (75-110); LIPASE 88 U/L (23-300); POTASSIUM 4.3 MMOL/L (3.6-5.0); SODIUM 133 mmol/l (132-148); TOTAL PROTEIN 6.6 G/DL (6.3-8.2)
[2016-10-03 21:11] LABS: ALB/GLOB RATIO 0.9 (1.0-2.1)
[2016-10-03] MEDS ORDERED: Iohexol 240 (50 ml) PO ONE (21:51)
[2016-10-03] MEDS ORDERED: Iohexol 240 (50 ml) ONE (22:22)
[2016-10-03 22:35] LABS: LARGE PLATELETS PRESENT; NEUTROPHIL 64 % (42-75); REACTIVE LYMPHOCYTES 2 % (0-0); TOTAL CELLS COUNTED 100
[2016-10-03 22:36] LABS: GIANT PLATELETS PRESENT
[2016-10-04] MEDS ORDERED: Dextrose 5%/0.45% NS 1,000 ML IV SCH (02:30)
[2016-10-04] MEDS ORDERED: MethylPREDNISolone 40 mg Vial ONE (02:38)
[2016-10-04] MEDS: SODIUM CHLORIDE IVPB SCH ×3 (04:00→18:30)
[2016-10-04] MEDS: METHYLPREDNISOLONE IVPB SCH ×3 (04:00→18:30)
--- NOTE | 2016-10-04 06:23 | CP.PCM.CON ---
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 with abdominal pain that began to grow in intensity 3 weeks ago. He states the pain is similar to the one he had 5 days ago when he was admitted here at [facility]. The pain is diffused and non radiating. pain is associated with previous NBNB vomiting. He states he does not have change in bowel habits. He states he was diagnosed with Crohns one year ago and has not seen his GI doctor in a long time. PMH: Crohns PSH: denies Social: denies tobacco, admits social alcohol denies illicit drugs Allergies: NKDA Past Patient History - Infectious Disease Hx of Infectious Diseases: None - Past Medical History & Family History Past Medical History?: Yes - Past Social History Smoking Status: Never Smoked - CARDIAC Hx Cardiac Disorders: No - PULMONARY Hx Respiratory Disorders: No - NEUROLOGICAL Hx Neurological Disorder: No - HEENT Hx HEENT Problems: No - RENAL Hx Chronic Kidney Disease: No - ENDOCRINE/METABOLIC Hx Endocrine Disorders: No - HEMATOLOGICAL/ONCOLOGICAL Hx Human Immunodeficiency Virus (HIV): No - MUSCULOSKELETAL/RHEUMATOLOGICAL Hx Falls: No - GASTROINTESTINAL Hx Crohn's Disease: Yes - GENITOURINARY/GYNECOLOGICAL Hx Genitourinary Disorders: No - PSYCHIATRIC Hx Substance Use: No - SURGICAL HISTORY Hx Surgeries: No - ANESTHESIA Hx Anesthesia: No Meds Allergies/Adverse Reactions: Allergies Allergy/AdvReac Type Severity Reaction Status Date / Time No Known Allergies Allergy Verified 09/30/16 18:14 - Medications Medications: Current Medications Dextrose/Sodium Chloride (Dextrose 5%/0.45% Ns 1000 Ml) 1,000 mls @ 125 mls/hr IV .Q8H JORGE L Stop: 10/05/16 02:29 Last Admin: 10/04/16 02:57 Dose: 125 mls/hr Methylprednisolone 20 mg/ (Sodium Chloride) 50 mls @ 100 mls/hr IVPB Q8H JORGE L Last Admin: 10/04/16 04:00 Dose: Not Given Sodium Chloride (Sodium Chloride 0.9%) 1,000 mls @ 100 mls/hr IV .Q10H JORGE L Stop: 10/05/16 06:17 Physical Exam - Constitutional Appears: Non-toxic, No Acute Distress - Head Exam Head Exam: ATRAUMATIC - Eye Exam Eye Exam: EOMI - ENT Exam ENT Exam: Mucous Membranes Moist - Respiratory Exam Respiratory Exam: Clear to Auscultation Bilateral, NORMAL BREATHING PATTERN - Cardiovascular Exam Cardiovascular Exam: REGULAR RHYTHM, +S1, +S2 - GI/Abdominal Exam GI & Abdominal Exam: Soft, Tenderness (diffuse pain on palpation). absent: Distended, Firm, Rebound, Rigid - Extremities Exam Extremities exam: Negative for: pedal edema, tenderness - Neurological Exam Neurological exam: Alert, Oriented x3 - Psychiatric Exam Psychiatric exam: Normal Affect, Normal Mood - Skin Skin Exam: Dry, Intact, Normal Color, Warm Results - Vital Signs Recent Vital Signs: Last Vital Signs Temp 98.9 F 10/04/16 02:59 Pulse 79 10/04/16 02:59 Resp 16 10/04/16 04:26 BP 129/68 10/04/16 02:59 Pulse Ox 100 10/04/16 05:54 - Labs Result Diagrams: 10/03/16 20:55 10/03/16 20:55 Assessment & Plan - Assessment and Plan (Free Text) Assessment: 21M presents with Crohn's flare CT: ileal wall thickening, fluid distention of appendix, crohns flare up CT scan similar to previous scan days prior Plan: - NPO, IVF, Pain control - Steroids as per GI - Protonix/SCDs - Serial abdominal exams - GI following - No surgical intervention at this time Discussed with Dr. Angel Menard, PGY1 <Ron Ortiz - Last Filed: 10/04/16 18:59> Meds - Medications Medications: Current Medications Dextrose/Sodium Chloride (Dextrose 5%/0.45% Ns 1000 Ml) 1,000 mls @ 125 mls/hr IV .Q8H JORGE L Stop: 10/05/16 02:29 Last Admin: 10/04/16 02:57 Dose: 125 mls/hr Methylprednisolone 20 mg/ (Sodium Chloride) 50 mls @ 100 mls/hr IVPB Q8H JORGE L Last Admin: 10/04/16 18:30 Dose: 100 mls/hr Dextrose/Lactated Ringer's (Dextrose 5%/Lactated Ringer's) 1,000 mls @ 125 mls/ hr IV .Q8H JORGE L Last Admin: 10/04/16 13:27 Dose: 125 mls/hr Morphine Sulfate (Morphine) 4 mg IVP Q4 PRN PRN Reason: Pain, moderate (4-7) Pantoprazole Sodium (Protonix Inj) 40 mg IVP DAILY JORGE L Last Admin: 10/04/16 10:41 Dose: 40 mg Results - Vital Signs Recent Vital Signs: Last Vital Signs Temp 97.9 F 10/04/16 16:07 Pulse 53 L 10/04/16 16:07 Resp 20 10/04/16 16:07 BP 101/58 L 10/04/16 16:07 Pulse Ox 99 10/04/16 16:07 - Labs Result Diagrams: 10/03/16 20:55 10/03/16 20:55 Attending/Attestation - Attestation I have personally seen and examined this patient.: Yes I have fully participated in the care of the patient.: Yes I have reviewed all pertinent clinical information: Yes Notes (Text): 10/04/16 18:56 Pt was seen and examined at bedside on 10/04/16 Agree with above note and assessment Pt with Crohns dis with PSBO and Abdominal pain C/W IV antibiotics Serial Abdominal Exam Plan d.w pt in detail. C.w current mx
[2016-10-04] MEDS ORDERED: Sodium Chloride 0.9% 1,000 ML IV SCH (06:30)
[2016-10-04] MEDS: Dextrose 5%/Lactated Ringer's 1,000 ML IV SCH ×3 (06:36→22:13)
--- NOTE | 2016-10-04 10:37 | CT ---
PROCEDURE: CT Abdomen and Pelvis with contrast HISTORY: abd pain COMPARISON: 09/30/2016 TECHNIQUE: Contrast dose: 95 cc Radiation dose: Total exam DLP = 354.62 mGy-cm. This CT exam was performed using one or more of the following dose reduction techniques: Automated exposure control, adjustment of the mA and/or kV according to patient size, and/or use of iterative reconstruction technique. FINDINGS: LOWER THORAX: Unremarkable. LIVER: Unremarkable. No gross lesion or ductal dilatation. GALLBLADDER AND BILE DUCTS: Unremarkable. PANCREAS: Unremarkable. No gross lesion or ductal dilatation. SPLEEN: Unremarkable. ADRENALS: Unremarkable. No mass. KIDNEYS AND URETERS: Unremarkable. No hydronephrosis. No solid mass. VASCULATURE: Unremarkable. No aortic aneurysm. BOWEL: Correlative early collapsed stomach limiting evaluation. Extensive stool burden throughout the colon suggestive of constipation. Mild dilatation of the proximal small bowel measuring up to 3.5 centimeters noted. Re- demonstration of marked wall thickening of the terminal ileum. APPENDIX: Enlarged appendix with hyperemia of the wall measuring up to 9 millimeter. PERITONEUM: There is fluid in the peritoneum. No free air. LYMPH NODES: Few scattered enlarged lymph nodes in the right lower quadrant. The largest of these measures approximately 1.1 centimeter. BLADDER: Distended urinary bladder. REPRODUCTIVE: Unremarkable. BONES: No acute fracture. OTHER FINDINGS: None. IMPRESSION: Moderately distended proximal small bowel loops and severe wall thickening of the terminal ileum and the adjacent distal ileal loops with associated wall thickening. Partial small bowel obstruction should be considered. Significant stool burden in the colon suggestive of constipation. Dilated appendix measuring up to 9 millimeter. Small amount of free fluid in the pelvis. Mildly enlarged lymph nodes in the right lower quadrant. Overall no significant change from the prior study. Please note that this report is in general agreement with the preliminary report provided by [facility].
--- NOTE | 2016-10-04 14:01 | CP.PCM.CON ---
History of Present Illness - History of Present Illness History of Present Illness: 21 yo male with h/o Crohns recently discharged admitted with abdominal pain and vomiting. Since admission last night given steroids and is better. After las t dsicharge was given steroids to take at home but wasn't taking as directed. Review of Systems - Constitutional Constitutional: absent: Chills - EENT Eyes: absent: Blurred Vision Ears: absent: Decreased Hearing Nose/Mouth/Throat: absent: Epistaxis - Cardiovascular Cardiovascular: absent: Chest Pain - Respiratory Respiratory: absent: Cough - Gastrointestinal Gastrointestinal: As Per HPI - Genitourinary Genitourinary: absent: Change in Urinary Stream Past Patient History - Infectious Disease Hx of Infectious Diseases: None - Past Medical History & Family History Past Medical History?: Yes - Past Social History Smoking Status: Never Smoked - CARDIAC Hx Cardiac Disorders: No - PULMONARY Hx Respiratory Disorders: No - NEUROLOGICAL Hx Neurological Disorder: No - HEENT Hx HEENT Problems: No - RENAL Hx Chronic Kidney Disease: No - ENDOCRINE/METABOLIC Hx Endocrine Disorders: No - HEMATOLOGICAL/ONCOLOGICAL Hx Human Immunodeficiency Virus (HIV): No - MUSCULOSKELETAL/RHEUMATOLOGICAL Hx Falls: No - GASTROINTESTINAL Hx Crohn's Disease: Yes - GENITOURINARY/GYNECOLOGICAL Hx Genitourinary Disorders: No - PSYCHIATRIC Hx Substance Use: No - SURGICAL HISTORY Hx Surgeries: No - ANESTHESIA Hx Anesthesia: No Meds Allergies/Adverse Reactions: Allergies Allergy/AdvReac Type Severity Reaction Status Date / Time No Known Allergies Allergy Verified 09/30/16 18:14 - Medications Medications: Current Medications Dextrose/Sodium Chloride (Dextrose 5%/0.45% Ns 1000 Ml) 1,000 mls @ 125 mls/hr IV .Q8H [facility] Stop: 10/05/16 02:29 Last Admin: 10/04/16 02:57 Dose: 125 mls/hr Methylprednisolone 20 mg/ (Sodium Chloride) 50 mls @ 100 mls/hr IVPB Q8H [facility] Last Admin: 10/04/16 10:42 Dose: 100 mls/hr Dextrose/Lactated Ringer's (Dextrose 5%/Lactated Ringer's) 1,000 mls @ 125 mls/ hr IV .Q8H JORGE L Last Admin: 10/04/16 13:27 Dose: 125 mls/hr Morphine Sulfate (Morphine) 4 mg IVP Q4 PRN PRN Reason: Pain, moderate (4-7) Pantoprazole Sodium (Protonix Inj) 40 mg IVP DAILY JORGE L Last Admin: 10/04/16 10:41 Dose: 40 mg Physical Exam - Constitutional Appears: Well - Head Exam Head Exam: ATRAUMATIC - Eye Exam Eye Exam: Normal appearance - ENT Exam ENT Exam: Normal Exam - Respiratory Exam Respiratory Exam: NORMAL BREATHING PATTERN - Cardiovascular Exam Cardiovascular Exam: REGULAR RHYTHM, +S1, +S2 - GI/Abdominal Exam GI & Abdominal Exam: Normal Bowel Sounds, Soft. absent: Tenderness Results - Vital Signs Recent Vital Signs: Last Vital Signs Temp 98.2 F 10/04/16 08:10 Pulse 53 L 10/04/16 08:10 Resp 20 10/04/16 08:10 BP 96/57 L 10/04/16 08:10 Pulse Ox 99 10/04/16 08:10 - Labs Result Diagrams: 10/03/16 20:55 10/03/16 20:55 - Imaging and Cardiology CT scan - abdomen Status: Report reviewed by me Assessment & Plan (1) Acute Crohn's disease Assessment and Plan: Currently better. Will advance diet. Possible discharge if diet tolerated Will eprescribe Prednisone 20 mg BID. Should f/u with me in office within one week. Status: Acute
--- NOTE | 2016-10-04 14:56 | CP.PCM.HP ---
History of Present Illness - History of Present Illness History of Present Illness: This is a 21 y/o male with hx of Crohn's disease and was just recently discharged form the medical floor was admitted last night again for exacerbation of abdominal pain. he was just recently discharged on Medrol pack but apparently took the medication differently as prescribed hence the symptoms were persistent Has no fever Has no diarrhea. Present on Admission - Present on Admission Any Indicators Present on Admission: No History of DVT/PE: No History of Uncontrolled Diabetes: No Urinary Catheter: No Decubitus Ulcer Present: No Review of Systems - Gastrointestinal Gastrointestinal: Abdominal Pain, Bloating Past Patient History - Infectious Disease Hx of Infectious Diseases: None - Past Medical History & Family History Past Medical History?: Yes - Past Social History Smoking Status: Never Smoked - CARDIAC Hx Cardiac Disorders: No - PULMONARY Hx Respiratory Disorders: No - NEUROLOGICAL Hx Neurological Disorder: No - HEENT Hx HEENT Problems: No - RENAL Hx Chronic Kidney Disease: No - ENDOCRINE/METABOLIC Hx Endocrine Disorders: No - HEMATOLOGICAL/ONCOLOGICAL Hx Human Immunodeficiency Virus (HIV): No - MUSCULOSKELETAL/RHEUMATOLOGICAL Hx Falls: No - GASTROINTESTINAL Hx Crohn's Disease: Yes - GENITOURINARY/GYNECOLOGICAL Hx Genitourinary Disorders: No - PSYCHIATRIC Hx Substance Use: No - SURGICAL HISTORY Hx Surgeries: No - ANESTHESIA Hx Anesthesia: No Meds Allergies/Adverse Reactions: Allergies Allergy/AdvReac Type Severity Reaction Status Date / Time No Known Allergies Allergy Verified 09/30/16 18:14 Physical Exam - Head Exam Head Exam: NORMAL INSPECTION - Eye Exam Eye Exam: Normal appearance - ENT Exam ENT Exam: Mucous Membranes Moist - Respiratory Exam Respiratory Exam: Clear to Auscultation Bilateral - Cardiovascular Exam Cardiovascular Exam: REGULAR RHYTHM - GI/Abdominal Exam GI & Abdominal Exam: Tenderness - Neurological Exam Neurological exam: CN II-XII Intact, Reflexes Normal Results - Vital Signs Recent Vital Signs: Last Vital Signs Temp 98.2 F 10/04/16 08:10 Pulse 53 L 10/04/16 08:10 Resp 20 10/04/16 08:10 BP 96/57 L 10/04/16 08:10 Pulse Ox 99 10/04/16 08:10 - Labs Result Diagrams: 10/03/16 20:55 10/03/16 20:55 Assessment & Plan (1) Acute Crohn's disease Status: Acute - Assessment and Plan (Free Text) Plan: discussed with DR Slaughter and suggested starting patient on steroids and clear liquids if tolerates po and diet will send home patient today and advised follow up with Dr Slaughter and PMD.
[2016-10-05] MEDS: METHYLPREDNISOLONE IVPB SCH ×2 (02:57→12:12)
[2016-10-05] MEDS: SODIUM CHLORIDE IVPB SCH ×2 (02:57→12:12)
[2016-10-05] MEDS: Dextrose 5%/Lactated Ringer's 1,000 ML IV SCH ×3 (04:53→16:59)
--- NOTE | 2016-10-05 08:20 | CP.PCM.PN ---
Addendum entered and electronically signed by Arcelia Iniguez DPM 10/05/16 08:56: d/w Dr. Ortiz no sx intervention at this time, signing off please reconsult as necessary Original Note: <Arcelia Iniguez - Last Filed: 10/05/16 08:18> Subjective - Date & Time of Evaluation Date of Evaluation: 10/05/16 Time of Evaluation: 08:18 - Subjective Subjective: SURGERY NOTE FOR DR. ORTIZ: 21 y/o male seen at bedside this morning for abdominal pain x 3 weeks. patient states that the pain has resolved and he is passing gas but has not had a BM since being admitted. Patient is tolerating liquids. He denies n/f/v/d/c/sob. Objective - Vital Signs/Intake and Output Vital Signs (last 24 hours): Temp Pulse Resp BP Pulse Ox 98.3 F 60 98 H 103/58 L 19 L 10/05/16 00:24 10/05/16 00:24 10/05/16 00:24 10/05/16 00:24 10/05/16 00:24 - Medications Medications: Current Medications Methylprednisolone 20 mg/ (Sodium Chloride) 50 mls @ 100 mls/hr IVPB Q8H [facility] Last Admin: 10/05/16 02:57 Dose: 100 mls/hr Dextrose/Lactated Ringer's (Dextrose 5%/Lactated Ringer's) 1,000 mls @ 125 mls/ hr IV .Q8H [facility] [place] Last Admin: 10/05/16 06:55 Dose: Not Given Morphine Sulfate (Morphine) 4 mg IVP Q4 PRN PRN Reason: Pain, moderate (4-7) Pantoprazole Sodium (Protonix Inj) 40 mg IVP DAILY [facility] [place] Last Admin: 10/04/16 10:41 Dose: 40 mg - Constitutional Appears: Well, Non-toxic, No Acute Distress - GI/Abdominal Exam GI & Abdominal Exam: Soft. absent: Guarding, Tenderness - Neurological Exam Neurological Exam: Alert, Awake, Oriented x3 - Psychiatric Exam Psychiatric exam: Normal Affect, Normal Mood Assessment and Plan - Assessment and Plan (Free Text) Assessment: 21 y/o male Pt with Crohns disease with P SBO and Abdominal pain C/W IV antibiotics C/W steroids cont. diet as tolerated Serial Abdominal Exam Plan d.w pt in detail. C.w current mx, recommendations per GI <Ron Ortiz B - Last Filed: 10/05/16 10:03> Objective - Vital Signs/Intake and Output Vital Signs (last 24 hours): Temp Pulse Resp BP Pulse Ox 97.4 F L 46 L 20 100/52 L 99 10/05/16 08:34 10/05/16 08:34 10/05/16 08:34 10/05/16 08:34 10/05/16 08:34 - Medications Medications: Current Medications Methylprednisolone 20 mg/ (Sodium Chloride) 50 mls @ 100 mls/hr IVPB Q8H [facility] [place] Last Admin: 10/05/16 02:57 Dose: 100 mls/hr Dextrose/Lactated Ringer's (Dextrose 5%/Lactated Ringer's) 1,000 mls @ 125 mls/ hr IV .Q8H [facility] [place] Last Admin: 10/05/16 06:55 Dose: Not Given Morphine Sulfate (Morphine) 4 mg IVP Q4 PRN PRN Reason: Pain, moderate (4-7) Pantoprazole Sodium (Protonix Ec Tab) 40 mg PO DAILY JORGE L - Labs Labs: 10/05/16 08:00 Attending/Attestation - Attestation I have personally seen and examined this patient.: Yes I have fully participated in the care of the patient.: Yes I have reviewed all pertinent clinical information, including history, physical exam and plan: Yes Notes (Text): 10/05/16 10:03 Pt was seen and examined at bedside on 10/05/16 Agree with above note and assessment Pt is with Crohns dis, improving clinically No need for surgical intervention at present f.U as out pt plan d.w pt in detail
[2016-10-05 08:21] LABS: HEMATOCRIT 39.3 % (35.0-51.0); MEAN CELL VOLUME 74.9 fl (80.0-94.0); MEAN CORPUSCULAR HEMOGLOBIN 24.3 pg (27.0-31.0); MEAN CORPUSCULAR HGB CONC 32.4 g/dL (33.0-37.0); RED CELL DISTRIBUTION WIDTH 15.5 % (11.5-14.5); WHITE BLOOD COUNT 8.8 K/uL (4.8-10.8)
--- NOTE | 2016-10-05 10:18 | CP.PCM.DIS ---
Provider - Provider Date of Admission: 10/04/16 02:27 Attending physician: Christopher Green MD Time Spent in preparation of Discharge (in minutes): 20 Diagnosis - Discharge Diagnosis (1) Acute Crohn's disease Status: Acute Hospital Course - Lab Results Lab Results: Most Recent Lab Values WBC 8.8 K/uL (4.8-10.8) 10/05/16 08:00 RBC 5.24 Mil/uL (4.40-5.90) 10/05/16 08:00 Hgb 12.7 g/dL (12.0-18.0) 10/05/16 08:00 Hct 39.3 % (35.0-51.0) 10/05/16 08:00 MCV 74.9 fl (80.0-94.0) L 10/05/16 08:00 MCH 24.3 pg (27.0-31.0) L 10/05/16 08:00 MCHC 32.4 g/dL (33.0-37.0) L 10/05/16 08:00 RDW 15.5 % (11.5-14.5) H 10/05/16 08:00 Plt Count 419 K/uL (130-400) H 10/05/16 08:00 MPV 6.8 fl (7.2-11.7) L 10/03/16 20:55 Neut % (Auto) 72.6 % (50.0-75.0) 10/03/16 20:55 Lymph % (Auto) 11.4 % (20.0-40.0) L 10/03/16 20:55 Jewell % (Auto) 15.3 % (0.0-10.0) H 10/03/16 20:55 Eos % (Auto) 0.5 % (0.0-4.0) 10/03/16 20:55 Baso % (Auto) 0.2 % (0.0-2.0) 10/03/16 20:55 Neut # 8.9 K/uL (1.8-7.0) H 10/03/16 20:55 Lymph # 1.4 K/uL (1.0-4.3) 10/03/16 20:55 Jewell # 1.9 K/uL (0.0-0.8) H 10/03/16 20:55 Eos # 0.1 K/uL (0.0-0.7) 10/03/16 20:55 Baso # 0.0 K/uL (0.0-0.2) 10/03/16 20:55 Neutrophils % (Manual) 64 % (42-75) 10/03/16 20:55 Band Neutrophils % 9 % (0-2) H 10/03/16 20:55 Lymphocytes % (Manual) 13 % (20-50) L 10/03/16 20:55 Reactive Lymphs % 2 % (0-0) H 10/03/16 20:55 Monocytes % (Manual) 12 % (0-10) H 10/03/16 20:55 Platelet Estimate Normal (NORMAL) 10/03/16 20:55 Large Platelets Present 10/03/16 20:55 Giant Platelets Present 10/03/16 20:55 Poikilocytosis (manual Slight 10/03/16 20:55 Anisocytosis (manual) Slight 10/03/16 20:55 Tear Drop Cells Slight 10/03/16 20:55 Ovalocytes Slight 10/03/16 20:55 Sodium 133 mmol/l (132-148) 10/03/16 20:55 Potassium 4.3 MMOL/L (3.6-5.0) 10/03/16 20:55 Chloride 98 mmol/L (98-107) 10/03/16 20:55 Carbon Dioxide 27 mmol/L (22-30) 10/03/16 20:55 Anion Gap 13 (10-20) 10/03/16 20:55 BUN 9 mg/dl (9-20) 10/03/16 20:55 Creatinine 0.9 mg/dL (0.8-1.5) 10/03/16 20:55 Est GFR ( Amer) > 60 10/03/16 20:55 Est GFR (Non-Af Amer) > 60 10/03/16 20:55 Random Glucose 110 mg/dL (75-110) 10/03/16 20:55 Calcium 8.6 mg/dL (8.4-10.2) 10/03/16 20:55 Total Bilirubin 0.2 mg/dl (0.2-1.3) 10/03/16 20:55 AST 25 U/L (17-59) 10/03/16 20:55 ALT 27 U/L (21-72) 10/03/16 20:55 Alkaline Phosphatase 87 U/L (38-126) 10/03/16 20:55 Total Protein 6.6 G/DL (6.3-8.2) 10/03/16 20:55 Albumin 3.2 g/dL (3.5-5.0) L 10/03/16 20:55 Globulin 3.4 gm/dL (2.2-3.9) 10/03/16 20:55 Albumin/Globulin Ratio 0.9 (1.0-2.1) L 10/03/16 20:55 Lipase 88 U/L (23-300) 10/03/16 20:55 - Hospital Course Hospital Course: This is a 21 y/o male with hx of Crohn's disease was admitted for exacerbation of the disease. he was just recently discharged from the same symptoms went home but readmitted or exacerbation of abd pain. Patient apparently took the medrol tabs differently as prescribed. Discharge Exam - Head Exam Head Exam: NORMAL INSPECTION - Eye Exam Eye Exam: Normal appearance - Respiratory Exam Respiratory Exam: NORMAL BREATHING PATTERN - GI/Abdominal Exam GI & Abdominal Exam: Normal Bowel Sounds - Neurological Exam Neurological exam: CN II-XII Intact, Oriented x3 - Psychiatric Exam Psychiatric exam: Normal Mood Discharge Plan - Discharge Medications Prescriptions: Pantoprazole [Protonix EC Tab] 40 mg PO DAILY #30 ect - Follow Up Plan Condition: FAIR Disposition: HOME/ ROUTINE Instructions: Crohn Disease (DC) Additional Instructions: Please call for appointment with Dr. Slaughter for follow-up visit in 1 week
--- NOTE | 2016-10-05 16:02 | CP.PCM.PN ---
Subjective - Date & Time of Evaluation Date of Evaluation: 10/05/16 Time of Evaluation: 15:59 - Subjective Subjective: Clinically better . Tolerating solid diet Objective - Vital Signs/Intake and Output Vital Signs (last 24 hours): Temp Pulse Resp BP Pulse Ox 97.4 F L 46 L 20 100/52 L 99 10/05/16 08:34 10/05/16 08:34 10/05/16 08:34 10/05/16 08:34 10/05/16 08:34 - Medications Medications: Current Medications Methylprednisolone 20 mg/ (Sodium Chloride) 50 mls @ 100 mls/hr IVPB Q8H [facility] Last Admin: 10/05/16 12:12 Dose: 100 mls/hr Dextrose/Lactated Ringer's (Dextrose 5%/Lactated Ringer's) 1,000 mls @ 125 mls/ hr IV .Q8H [facility] Last Admin: 10/05/16 06:55 Dose: Not Given Morphine Sulfate (Morphine) 4 mg IVP Q4 PRN PRN Reason: Pain, moderate (4-7) Pantoprazole Sodium (Protonix Ec Tab) 40 mg PO DAILY JORGE L - Labs Labs: 10/05/16 08:00 - Head Exam Head Exam: ATRAUMATIC - Eye Exam Eye Exam: Normal appearance - ENT Exam ENT Exam: Mucous Membranes Moist - Respiratory Exam Respiratory Exam: Clear to Ausculation Bilateral - Cardiovascular Exam Cardiovascular Exam: REGULAR RHYTHM - GI/Abdominal Exam GI & Abdominal Exam: Soft, Normal Bowel Sounds. absent: Tenderness Assessment and Plan (1) Acute Crohn's disease Assessment & Plan: Will send home today on Prednisone 20 mg po BID. F/u with me within the week for more definitive therapy as prednisone is only for the short term. Status: Acute
[2016-10-05 16:04] VITALS: PULSE 61; RESP 18; TEMP 98.6; O2SAT 100
[2016-10-05 16:08] VITALS: BP 106/59
[2016-10-06] MEDS ORDERED: Pantoprazole 40 mg EC Tab PO SCH (09:00)
== END 2016-10-05 17:32 | disposition home or self-care (01) | DRG 386 ==
LOC: H.ER 19:56 → H.ERHOLD 10-04 02:27 → H.MEDSURG1 10-04 03:46
PROVIDERS: ADMIT Family Medicine; ATTEND Family Medicine
DX: K50.912 Crohn's disease, unspecified, with intestinal obstruction (principal)